=== PATIENT | male | born 1980 | race Caucasian/White ===

== ENCOUNTER 2017-03-03 18:34 | Emergency (ER) | payer OTHER ==
[2017-03-03 18:48] VITALS: BP 141/84; PULSE 98; RESP 16; TEMP 99
[2017-03-03] MEDS ORDERED: GELATIN SPONGE,ABSORB (SMALL) 1 EACH SPONGE TOPICAL STA (19:34)
--- NOTE | 2017-03-03 19:36 | ED ---
Wound/Laceration HPI - General Chief Complaint: Wound/Laceration Stated Complaint: rt index finger laceration Time Seen by Provider: 03/03/17 19:30 Source: patient, RN notes reviewed, old records reviewed Mode of arrival: ambulatory Limitations: no limitations - History of Present Illness Initial Comments: This is a 36 year old male with CC of right index finger laceratoin. Patient reports he d was putting garbage into trash can when he cut his hand on an unknown object. Patient reports that he is not on blood thinners, but the laceration continued to bleed despite bandages. Patient reports full range of motion of finger, denies peripheral paresthesias. Patient states that tetanus is up to date. - Related Data Allergies Allergy/AdvReac Type Severity Reaction Status Date / Time No Known Allergies Allergy Verified 03/03/17 18:48 Review of Systems ROS Statement: Those systems with pertinent positive or pertinent negative responses have been documented in the HPI. ROS Other: All systems not noted in ROS Statement are negative. Past Medical History Past Medical History: Osteoarthritis (OA) History of Any Multi-Drug Resistant Organisms: None Reported Past Surgical History: Appendectomy, Tonsillectomy Past Psychological History: No Psychological Hx Reported Smoking Status: Current every day smoker Past Alcohol Use History: Occasional Past Drug Use History: None Reported General Exam - General Exam Comments Initial Comments: Well appearing 36 year old male, no distress. Limitations: no limitations General appearance: alert, in no apparent distress Head exam: Present: atraumatic, normocephalic, normal inspection Eye exam: Present: normal appearance, PERRL, EOMI. Absent: scleral icterus, conjunctival injection, periorbital swelling ENT exam: Present: normal exam, mucous membranes moist Neck exam: Present: normal inspection. Absent: tenderness, meningismus, lymphadenopathy Respiratory exam: Present: normal lung sounds bilaterally. Absent: respiratory distress, wheezes, rales, rhonchi, stridor Cardiovascular Exam: Present: regular rate, normal rhythm, normal heart sounds. Absent: systolic murmur, diastolic murmur, rubs, gallop, clicks Extremities exam: Present: normal inspection, full ROM, normal capillary refill. Absent: tenderness, pedal edema, joint swelling, calf tenderness Right Hand Wrist exam: Present: full ROM, laceration Hand L/R Front: 1 - laceration (2cm laceration,abrasion. laceratoin is shaved off skin, no skin to suture together.) Neuro motor exam: Present: wrist extension intact, thumb opposition intact, thumb IP flexion intact, thumb adduction intact, fingers 2-5 abduction intact Neurosensory exam: Present: 2-point discrimination, radial nerve intact, ulnar nerve intact, median nerve intact Vascular: Present: normal capillary refill Back exam: Present: normal inspection Neurological exam: Present: alert, oriented X3, CN II-XII intact Psychiatric exam: Present: normal affect, normal mood Skin exam: Present: warm, dry, intact, normal color. Absent: rash Course Vital Signs 03/03/17 18:45 Temperature 99.0 F Pulse Rate 98 Respiratory 16 Rate Blood Pressure 141/84 O2 Sat by Pulse 100 Oximetry Medical Decision Making - Medical Decision Making 36 year old male with CC of right index finger laceration after putting hand in garbage can and was cut on unknown object. Patient has a shaved like laceraiton , no skin to suture together. Laceration is superficial, and there is some bleeding. Patient wound was irrigated. A piece of gelfoam applied and pressure dressing applied. Patient advised to allow gelfoam to come off when ready. Discussed follow up with PCP or return if any signs of infection occur. REturn paramteres discussed. PAtient states that he already had tetanus recently. Disposition Clinical Impression: Finger laceration Disposition: HOME SELF-CARE Condition: Good Instructions: Finger Laceration (ED) Additional Instructions: Patient advised to allow the Gelfoam to come off within the next 2-3 days. Keep the wound covered until then. Return to emergency department if any alarming signs or symptoms occur. Referrals: Ra Austin Jr, DO [Primary Care Provider] - 1-2 days Time of Disposition: 19:35
--- NOTE | 2017-03-06 04:01 | CDI ---
Dear Jessy Anderson PA-C: Please do addendum History of Present Illness, Physical Examination, and Procedure of finger laceration. Thank You, Van Mark, [employer]. If you have any questions, please contact Student Services Advisor at [phone]. [facility]
== END 2017-03-03 19:54 | disposition home or self-care (01) ==
LOC: EC 18:34
DX: S61.210A Laceration without foreign body of right index finger without damage to nail, initial encounter (principal); F17.200 Nicotine dependence, unspecified, uncomplicated; W45.8XXA Other foreign body or object entering through skin, initial encounter; Y93.89 Activity, other specified
CPT/HCPCS: 99283

== ENCOUNTER 2020-02-02 11:53 | Emergency (ER) | payer OTHER ==
[2020-02-02 12:01] VITALS: BP 150/94; PULSE 103; RESP 18; TEMP 98.1
[2020-02-02] MEDS ORDERED: IBUPROFEN 600 MG TAB PO STA (12:06)
--- NOTE | 2020-02-02 12:20 | XR ---
EXAMINATION TYPE: XR hand complete LT DATE OF EXAM: 02/02/2020 CLINICAL HISTORY: pain TECHNIQUE: Frontal, lateral and oblique images of the left hand are obtained. COMPARISON: None. FINDINGS: There is no acute fracture/dislocation evident. The joint spaces appear within normal limi ts. The overlying soft tissue appears unremarkable. IMPRESSION: There is no acute fracture or dislocation. ICD 10 NO FRACTURE, INITIAL EVALUATION
--- NOTE | 2020-02-02 12:21 | ED ---
General Adult HPI - General Chief complaint: Extremity Injury, Upper Stated complaint: Lt hand injury Time Seen by Provider: 02/02/20 12:03 Source: patient, RN notes reviewed, old records reviewed Mode of arrival: ambulatory Limitations: no limitations - History of Present Illness Initial comments: 39-year-old male presenting with left thumb injury. Patient struck his left thumb just at the base with a hammer. He had significant pain and swelling. He presented emergency department for evaluation. No other injury. Patient is otherwise healthy. - Related Data Previous Rx's Medication Instructions Recorded Ibuprofen [Motrin] 600 mg PO Q8HR PRN #24 tab 02/02/20 Allergies Allergy/AdvReac Type Severity Reaction Status Date / Time No Known Allergies Allergy Verified 02/02/20 12:01 Review of Systems ROS Statement: Those systems with pertinent positive or pertinent negative responses have been documented in the HPI. ROS Other: All systems not noted in ROS Statement are negative. Past Medical History Past Medical History: Osteoarthritis (OA) History of Any Multi-Drug Resistant Organisms: None Reported Past Surgical History: Appendectomy, Tonsillectomy Past Psychological History: No Psychological Hx Reported Smoking Status: Former smoker Past Alcohol Use History: Occasional Past Drug Use History: None Reported General Exam Limitations: no limitations General appearance: alert, in no apparent distress Head exam: Present: atraumatic, normocephalic Eye exam: Present: normal appearance, PERRL ENT exam: Present: normal exam Neck exam: Present: normal inspection. Absent: tenderness, meningismus Respiratory exam: Present: normal lung sounds bilaterally. Absent: respiratory distress, wheezes Cardiovascular Exam: Present: regular rate, normal rhythm GI/Abdominal exam: Present: soft. Absent: distended, tenderness, guarding Extremities exam: Present: normal capillary refill, joint swelling (Swelling at the base of the thumb, mild ecchymosis on the thenar eminence. Range of motion is limited secondary to pain, normal cap refill, no laceration or abrasion.). Absent: pedal edema Back exam: Present: normal inspection Course Vital Signs 02/02/20 11:58 Temperature 98.1 F Pulse Rate 103 H Respiratory 18 Rate Blood Pressure 150/94 O2 Sat by Pulse 100 Oximetry Medical Decision Making - Medical Decision Making 39-year-old male presenting with left thumb injury. X-rays performed of the left thumb and left hand. This is negative for fracture dislocation. This is soft tissue injury, patient will elevate and ice his left hand. He will take Motrin for pain. Disposition Clinical Impression: Contusion of thumb, left Disposition: HOME SELF-CARE Condition: Good Instructions (If sedation given, give patient instructions): Contusion in Adults (ED), Finger Sprain (ED) Prescriptions: Ibuprofen [Motrin] 600 mg PO Q8HR PRN #24 tab PRN Reason: Pain Is patient prescribed a controlled substance at d/c from ED?: No Referrals: Ra Austin Jr, [Primary Care Provider] - 1-2 days Time of Disposition: 12:20
== END 2020-02-02 12:33 | disposition home or self-care (01) ==
LOC: EC 11:53
DX: S60.012A Contusion of left thumb without damage to nail, initial encounter (principal); Z87.891 Personal history of nicotine dependence; W22.8XXA Striking against or struck by other objects, initial encounter; Y93.89 Activity, other specified; Y92.009 Unspecified place in unspecified non-institutional (private) residence as the place of occurrence of the external cause
CPT/HCPCS: 99284

== ENCOUNTER 2023-09-26 18:57 | Emergency (ER) | payer BC, OTHER ==
--- NOTE | 2023-09-26 19:34 | ED ---
Recheck HPI - General Chief Complaint: Recheck/Abnormal Lab/Rx Stated Complaint: High blood pressure Time Seen by Provider: 09/26/23 19:21 Source: patient Mode of arrival: ambulatory Limitations: no limitations - History of Present Illness Initial Comments: 43-year-old male presenting with concern for elevated blood pressure. Patient has been having intermittent blurry vision since yesterday, today he checked his blood pressure and noted that it was 142/102. States that he also has a minor frontal headache. No chest pain or difficulty breathing. No abdominal pain, nausea, vomiting. No neck pain, fever, eye pain, difficulty with extraocular movements, or neck pain. No history of hypertension. Patient currently only takes Zoloft. Follows with Dr. Austin and receives annual physical. - Related Data Previous Rx's Medication Instructions Recorded Ibuprofen [Motrin] 600 mg PO Q8HR PRN #24 tab 02/02/20 Allergies Allergy/AdvReac Type Severity Reaction Status Date / Time No Known Allergies Allergy Verified 09/26/23 19:20 Review of Systems ROS Statement: Those systems with pertinent positive or pertinent negative responses have been documented in the HPI. ROS Other: All systems not noted in ROS Statement are negative. Past Medical History Past Medical History: Osteoarthritis (OA) History of Any Multi-Drug Resistant Organisms: None Reported Past Surgical History: Appendectomy, Tonsillectomy Past Psychological History: Anxiety Smoking Status: Current every day smoker Past Alcohol Use History: Occasional Past Drug Use History: None Reported General Exam Limitations: no limitations General appearance: alert, in no apparent distress Head exam: Present: atraumatic, normocephalic Eye exam: Present: normal appearance, PERRL, EOMI. Absent: periorbital swelling Pupils: Present: normal accommodation Neck exam: Present: normal inspection. Absent: meningismus Respiratory exam: Present: normal lung sounds bilaterally. Absent: respiratory distress, wheezes, rales, rhonchi, stridor Cardiovascular Exam: Present: regular rate, normal rhythm, normal heart sounds. Absent: systolic murmur, diastolic murmur, rubs, gallop, clicks Neurological exam: Present: alert, oriented X3 Psychiatric exam: Present: normal affect, normal mood Skin exam: Present: warm, dry Course Vital Signs 09/26/23 09/26/23 09/26/23 19:17 19:20 19:45 Temperature 98.1 F Pulse Rate 108 H 98 92 Respiratory 20 18 18 Rate Blood Pressure 155/96 152/98 146/104 O2 Sat by Pulse 98 Oximetry 09/26/23 09/26/23 20:20 20:57 Temperature 97.2 F L Pulse Rate 76 73 Respiratory 18 18 Rate Blood Pressure 159/107 151/108 O2 Sat by Pulse 98 Oximetry Medical Decision Making - Medical Decision Making Was pt. sent in by a medical professional or institution (, PA, GEOPHYSICIST, urgent care, hospital, or [facility]...) When possible be specific @ -No Did you speak to anyone other than the patient for history (EMS, parent, family, police, friend...)? What history was obtained from this source @ -No Did you review nursing and triage notes (agree or disagree)? Why? @ -I reviewed and agree with nursing and triage notes Were old charts reviewed (outside hosp., previous admission, EMS record, old EKG, old radiological studies, urgent care reports/EKG's, [facility] records)? Report findings @ -No old charts were reviewed Differential Diagnosis (chest pain, altered mental status, abdominal pain women, abdominal pain men, vaginal bleeding, weakness, fever, dyspnea, syncope, h eadache, dizziness, GI bleed, back pain, seizure, CVA, palpatations, mental health, musculoskeletal)? @ -MDM Differential Headache: Migraine, tension, cluster, carbon monoxide, central venous thrombosis, pension karma temporal arteritis, acute closure glaucoma, intercranial hemorrhage, mastoiditis, sinusitis, head injury this is not meant to be an all-inclusive list. EKG interpreted by me (3pts min.). @ -As above X-rays interpreted by me (1pt min.). @ -None done CT interpreted by me (1pt min.). @ -None done U/S interpreted by me (1pt. min.). @ -None done What testing was considered but not performed or refused? (CT, X-rays, U/S, labs)? Why? @ -None What meds were considered but not given or refused? Why? @ -None Did you discuss the management of the patient with other professionals (professionals i.e. , MELBA, GEOPHYSICIST, lab, RT, psych nurse, social science research assistant, pigeon fancier, teacher, compliance review officer, case folder)? Give summary @ -No Was smoking cessation discussed for >3mins.? @ -No Was critical care preformed (if so, how long)? @ -No Were there social determinants of health that impacted care today? How? (Homelessness, low income, unemployed, alcoholism, drug addiction, transportati on, low edu. Level, literacy, decrease access to med. care, prison, rehab)? @ -No Was there de-escalation of care discussed even if they declined (Discuss DNR or withdrawal of care, Hospice)? DNR status @ -No What co-morbidities impacted this encounter? (DM, HTN, Smoking, COPD, CAD, Cancer, CVA, ARF, Chemo, Hep., AIDS, mental health diagnosis, sleep apnea, morbid obesity)? @ -None Was patient admitted / discharged? Hospital course, mention meds given and route, prescriptions, significant lab abnormalities, going to OR and other pertinent info. @ -43-year-old male presenting with chief complaint of elevated blood pressure. He states that at home he was having some intermittent vision blurriness and a mild frontal headache. This prompted him to check his blood pressure and he noted it was 142/102. Patient otherwise feels fine. History and physical exam are conducted. No focal neurological deficits. CBC CMP and troponin require no action. EKG shows sinus rhythm with no acute changes. On reassessment the patient is resting comfortably showing no signs of distress. He is educated on today's findings. Instructed to follow-up with his PCP and educated on recording a blood pressure diary. Discharged home. Follow-up with PCP. Report back to ER with any new or worsening symptoms. Discussed return parameters and answered all questions. Patient conveyed verbal understanding and agreed to the plan. I discussed this case in detail with my attending Dr. Galindo Undiagnosed new problem with uncertain prognosis? @ -No Drug Therapy requiring intensive monitoring for toxicity (Heparin, Nitro, Insulin, Cardizem)? @ -No Were any procedures done? @ -No Diagnosis/symptom? @ -Hypertension Acute, or Chronic, or Acute on Chronic? @ -Acute Uncomplicated (without systemic symptoms) or Complicated (systemic symptoms)? @ -Uncomplicated Side effects of treatment? @ -No Exacerbation, Progression, or Severe Exacerbation? @ -No Poses a threat to life or bodily function? How? (Chest pain, [place], [place], pneumonia, PE, COPD, DKA, ARF, appy, cholecystitis, CVA, Diverticulitis, Homicidal, Suicidal, threat to staff... and all critical care pts) @ -Low likelihood at this time - Lab Data Result diagrams: 09/26/23 19:37 09/26/23 19:37 Lab Results 09/26/23 09/26/23 09/26/23 Range/Units 19:37 19:37 19:37 WBC 12.0 H (3.8-10.6) k/uL RBC 5.09 (4.30-5.90) m/uL Hgb 15.6 (13.0-17.5) gm/dL Hct 47.4 (39.0-53.0) % MCV 93.2 (80.0-100.0) fL MCH 30.6 (25.0-35.0) pg MCHC 32.8 (31.0-37.0) g/dL RDW 12.5 (11.5-15.5) % Plt Count 248 (150-450) k/uL MPV 8.4 Neutrophils % 63 % Lymphocytes % 28 % Monocytes % 4 % Eosinophils % 3 % Basophils % 1 % Neutrophils # 7.6 (1.3-7.7) k/uL Lymphocytes # 3.4 (1.0-4.8) k/uL Monocytes # 0.5 (0-1.0) k/uL Eosinophils # 0.4 (0-0.7) k/uL Basophils # 0.1 (0-0.2) k/uL Sodium 138 (137-145) mmol/L Potassium 3.5 (3.5-5.1) mmol/L Chloride 105 (98-107) mmol/L Carbon Dioxide 24 (22-30) mmol/L Anion Gap 9 mmol/L BUN 16 (9-20) mg/dL Creatinine 0.83 (0.66-1.25) mg/dL Est GFR (CKD-EPI)AfAm >90 (>60 ml/min/1.73 sqM) Est GFR (CKD-EPI)NonAf >90 (>60 ml/min/1.73 sqM) Glucose 109 H (74-99) mg/dL Calcium 9.7 (8.4-10.2) mg/dL Total Bilirubin 0.7 (0.2-1.3) mg/dL AST 24 (17-59) U/L ALT 37 (4-49) U/L Alkaline Phosphatase 74 (38-126) U/L Troponin I <0.012 (0.000-0.034) ng/mL Total Protein 8.1 (6.3-8.2) g/dL Albumin 4.6 (3.5-5.0) g/dL Disposition Clinical Impression: Hypertension Disposition: HOME SELF-CARE Condition: Good Instructions (If sedation given, give patient instructions): Hypertension (ED) Additional Instructions: Follow-up with PCP. Report back to ER with any new or worsening symptoms. Keep a diary of blood pressures, measure your blood pressure at the same times each day. Is patient prescribed a controlled substance at d/c from ED?: No Referrals: Ra Austin Jr, [Primary Care Provider] - 1-2 days Time of Disposition: 20:38
[2023-09-26 19:55] LABS: Basophils # (A) 0.1 k/uL (0-0.2); Basophils % (A) 1 %; Eosinophils # (A) 0.4 k/uL (0-0.7); Eosinophils % (A) 3 %; HCT 47.4 % (39.0-53.0); HGB 15.6 gm/dL (13.0-17.5); Lymphocytes # (A) 3.4 k/uL (1.0-4.8); Lymphocytes % (A) 28 %; MCH 30.6 pg (25.0-35.0); MCHC 32.8 g/dL (31.0-37.0); MCV 93.2 fL (80.0-100.0); Mean Platelet Volume 8.4; Monocytes # (A) 0.5 k/uL (0-1.0); Monocytes % (A) 4 %; Neutrophils # (A) 7.6 k/uL (1.3-7.7); Neutrophils % (A) 63 %; Platelet Count 248 k/uL (150-450); RBC 5.09 m/uL (4.30-5.90); RDW 12.5 % (11.5-15.5)
[2023-09-26 19:58] VITALS: RESP 18
[2023-09-26 20:09] LABS: ALT 37 U/L (4-49); AST 24 U/L (17-59); African American GFR (CKD) >90 (>60 ml/min/1.73 sqM); Albumin 4.6 g/dL (3.5-5.0); Alkaline Phosphatase 74 U/L (38-126); Anion Gap 9 mmol/L; Blood Urea Nitrogen 16 mg/dL (9-20); Calcium 9.7 mg/dL (8.4-10.2); Carbon Dioxide 24 mmol/L (22-30); Chloride 105 mmol/L (98-107); Glucose 109 mg/dL (74-99); Non-African American GFR(CKD) >90 (>60 ml/min/1.73 sqM); Potassium 3.5 mmol/L (3.5-5.1); Sodium 138 mmol/L (137-145); Total Bilirubin 0.7 mg/dL (0.2-1.3); Total Protein 8.1 g/dL (6.3-8.2)
[2023-09-26] MEDS: ACETAMINOPHEN TAB 325 MG TAB PO STA ×2 (20:53→21:12)
[2023-09-26 21:37] VITALS: BP 151/108; PULSE 73; TEMP 97.2
== END 2023-09-26 21:13 | disposition home or self-care (01) ==
LOC: EC 18:57
DX: I10 Essential (primary) hypertension (principal); F17.200 Nicotine dependence, unspecified, uncomplicated
CPT/HCPCS: 36415; 80053; 84484; 85025; 93005; 99284

== ENCOUNTER 2024-07-12 14:28 | Emergency (ER) | payer BC ==
--- NOTE | 2024-07-12 15:09 | ED ---
Trauma HPI - General Chief Complaint: Extremity Injury, Upper Stated Complaint: R hand injury from table saw Time Seen by Provider: 07/12/24 14:38 Source: patient, family, RN notes reviewed Mode of arrival: ambulatory Limitations: no limitations - History of Present Illness Initial Comments: This is a 43-year-old male presenting with for right hand injury x 30 minutes prior to ER arrival. Patient states he accidentally cut/injured his right hand with a table saw, causing loss of the end of his right thumb and deeply cutting his second and third digits. 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 Denies other injuries. Hand wrapped by triage nurse. States tetanus vaccina tion is not up-to-date. MD Complaint: injury Onset/Timin -: minutes(s) Loss of Consciousness: no Location - Extremities: Right: Hand Severity scale (1-10): 10 Consistency: constant Context: Machine or Tool Related Injury Associated Symptoms: denies other symptoms Treatments Prior to Arrival: cold therapy (Amputated digit washed and placed ice, by plastic) - Related Data Previous Rx's Medication Instructions Recorded Ibuprofen [Motrin] 600 mg PO Q8HR PRN #24 tab 02/02/20 Cephalexin [Keflex] 500 mg PO Q6HR 14 Days #56 cap 07/12/24 Ibuprofen [Motrin] 800 mg PO Q8H PRN #30 tab 07/12/24 Allergies Allergy/AdvReac Type Severity Reaction Status Date / Time No Known Allergies Allergy Verified 09/26/23 19:20 Review of Systems ROS Statement: Those systems with pertinent positive or pertinent negative responses have been documented in the HPI. ROS Other: All systems not noted in ROS Statement are negative. Past Medical History Past Medical History: Hypertension, Osteoarthritis (OA) History of Any Multi-Drug Resistant Organisms: None Reported Past Surgical History: Adenoidectomy, Appendectomy, Tonsillectomy Past Psychological History: Anxiety Smoking Status: Current every day smoker Past Alcohol Use History: Occasional Past Drug Use History: None Reported General Exam Limitations: no limitations General appearance: alert, in no apparent distress Head exam: Present: atraumatic, normocephalic, normal inspection Eye exam: Present: normal appearance, PERRL, EOMI. Absent: scleral icterus, conjunctival injection, periorbital swelling ENT exam: Present: normal exam, mucous membranes moist Neck exam: Present: normal inspection. Absent: tenderness, meningismus, lymphadenopathy Respiratory exam: Present: normal lung sounds bilaterally. Absent: respiratory distress, wheezes, rales, rhonchi, stridor Cardiovascular Exam: Present: regular rate, normal rhythm, normal heart sounds. Absent: systolic murmur, diastolic murmur, rubs, gallop, clicks GI/Abdominal exam: Present: soft, normal bowel sounds. Absent: distended, tenderness, guarding, rebound, rigid Extremities exam: Present: full ROM, normal capillary refill, other (Amputation of right thumb distal to DIP joint with minimal bleeding. Deep longitudinal lacerations along the frontal plane along the length of second and third digits with minimal bleeding). Absent: tenderness, pedal edema, joint swelling, calf tenderness Back exam: Present: normal inspection Neurological exam: Present: alert, oriented X3, CN II-XII intact Psychiatric exam: Present: normal affect, normal mood Skin exam: Present: warm, dry, intact, normal color. Absent: rash Course Vital Signs 07/12/24 14:41 Temperature 98 F Pulse Rate 100 Respiratory 20 Rate Blood Pressure 117/56 O2 Sat by Pulse 99 Oximetry Medical Decision Making - Medical Decision Making Was pt. sent in by a medical professional or institution (, PA, INTERACTIVE WEB DEVELOPER, urgent care, hospital, or usp...) When possible be specific @ -No Did you speak to anyone other than the patient for history (EMS, parent, family, police, friend...)? What history was obtained from this source @ -Patient's provided part of HPI Did you review nursing and triage notes (agree or disagree)? Why? @ -I reviewed and agree with nursing and triage notes Were old charts reviewed (outside hosp., previous admission, EMS record, old EKG, old radiological studies, urgent care reports/EKG's, usp records)? Report findings @ -No old charts were reviewed Differential Diagnosis (chest pain, altered mental status, abdominal pain women, abdominal pain men, vaginal bleeding, weakness, fever, dyspnea, syncope, headache, dizziness, GI bleed, back pain, seizure, CVA, palpatations, mental health, musculoskeletal)? @ -Complete amputation, deep, complex laceration, cellulitis, fracture, ligament damage, tetanus EKG interpreted by me (3pts min.). @ -Not done X-rays interpreted by me (1pt min.). @ -Right hand x-ray shows first digit fracture/amputation of distal phalanx. Third digit DIP joint abnormal, possible flexor tendon injury. Second digit has 2 mm radiopaque foreign body in distal volar aspect. CT interpreted by me (1pt min.). @ -None done U/S interpreted by me (1pt. min.). @ -None done What testing was considered but not performed or refused? (CT, X-rays, U/S, labs)? Why? @ -None What meds were considered but not given or refused? Why? @ -None Did you discuss the management of the patient with other professionals (professionals i.e. DrShoaib, PA, INTERACTIVE WEB DEVELOPER, lab, RT, psych nurse, geriatric social work professor, admiralty lawyer, teacher, hotel security officer, casework manager)? Give summary @ -Spoke to Dr. Clifford from orthopedics who advised clean wounds, closed second and third digit lacerations as best as possible and provide IV and p.o. antibiotics with outpatient follow-up. Advised contact surgical hand specialist at other hospitals if reattachment is preferred by patient. Contacted [facility] spoke to RN Jessy, who conveyed patient's case to Dr. Ramirez, who contacted hand surgeons, who agreed to ER to ER transfer the patient for ongoing care. Was smoking cessation discussed for >3mins.? @ -No Was critical care preformed (if so, how long)? @ -No Were there social determinants of health that impacted care today? How? (Homelessness, low income, unemployed, alcoholism, drug addiction, transportation, low edu. Level, literacy, decrease access to med. care, group home, rehab)? @ -No Was there de-escalation of care discussed even if they declined (Discuss DNR or withdrawal of care, Hospice)? DNR status @ -No What co-morbidities impacted this encounter? (DM, HTN, Smoking, COPD, CAD, Cancer, CVA, ARF, Chemo, Hep., AIDS, mental health diagnosis, sleep apnea, morbid obesity)? @ -None Was patient admitted / discharged? Hospital course, mention meds given and route, prescriptions, significant lab abnormalities, going to OR and other pertinent info. @ -Lab work shows mild leukocytosis (12.6) and hyperglycemia (194). Otherwise unremarkable. Right hand x-ray shows first digit fracture/amputation of distal phalanx. Third digit DIP joint abnormal, possible flexor tendon injury. Second digit has 2 mm radiopaque foreign body in distal volar aspect. Patient i nitially given normal saline, Dilaudid and Toradol for pain. Provided tetanus vaccination and started on IV Rocephin. Additional Toradol, Dilaudid and morphine provided for ongoing pain control. Spoke to Dr. Clifford from orthopedics who advised clean wounds, closed second and third digit lacerations as best as possible and provide IV and p.o. antibiotics with outpatient follow-up. Advised contact surgical hand specialist at other hospitals if reattachment is preferred by patient. Contacted [facility] spoke to RN Jessy, who conveyed patient's case to Dr. Ramirez, who contacted hand surgeons, who agreed to ER to ER transfer the patient for ongoing care. Discussed patient with Dr. Mclain. Undiagnosed new problem with uncertain prognosis? @ -Amputation Drug Therapy requiring intensive monitoring for toxicity (Heparin, Nitro, Insulin, Cardizem)? @ -No Were any procedures done? @ -No Diagnosis/symptom? @ -Amputation of thumb, severe damage/lacerations to fingers by tablesaw Acute, or Chronic, or Acute on Chronic? @ -Acute Uncomplicated (without systemic symptoms) or Complicated (systemic symptoms)? @ -Complicated Side effects of treatment? @ -No Exacerbation, Progression, or Severe Exacerbation? @ -No Poses a threat to life or bodily function? How? (Chest pain, [place], [place], pneumonia, PE, COPD, DKA, ARF, appy, cholecystitis, CVA, Diverticulitis, Homicidal, Suicidal, threat to staff... and all critical care pts) @ -Yes, amputation of digit, severe damage to fingers - Lab Data Result diagrams: 07/12/24 15:26 07/12/24 15:26 Lab Results 07/12/24 07/12/24 07/12/24 Range/Units 15:26 15: 15: WBC 12.6 H (3.8-10.6) k/uL RBC 4.90 (4.30-5.90) m/uL Hgb 15.0 (13.0-17.5) gm/dL Hct 44.9 (39.0-53.0) % MCV 91.7 (80.0-100.0) fL MCH 30.6 (25.0-35.0) pg MCHC 33.4 (31.0-37.0) g/dL RDW 12.6 (11.5-15.5) % Plt Count 241 (150-450) k/uL MPV 7.7 Neutrophils % 74 % Lymphocytes % 19 % Monocytes % 3 % Eosinophils % 3 % Basophils % 0 % Neutrophils # 9.2 H (1.3-7.7) k/uL Lymphocytes # 2.4 (1.0-4.8) k/uL Monocytes # 0.4 (0-1.0) k/uL Eosinophils # 0.4 (0-0.7) k/uL Basophils # 0.1 (0-0.2) k/uL PT 10.3 (10.0-12.5) sec INR 0.9 (<1.2) APTT 23.3 (22.0-30.0) sec Sodium 137 (137-145) mmol/L Potassium 4.5 (3.5-5.1) mmol/L Chloride 106 (98-107) mmol/L Carbon Dioxide 20 L (22-30) mmol/L Anion Gap 11 mmol/L BUN 19 (9-20) mg/dL Creatinine 0.95 (0.66-1.25) mg/dL Est GFR (CKD-EPI)AfAm >90 (>60 ml/min/1.73 sqM) Est GFR (CKD-EPI)NonAf >90 (>60 ml/min/1.73 sqM) Glucose 194 H (74-99) mg/dL Calcium 9.6 (8.4-10.2) mg/dL Total Bilirubin 0.7 (0.2-1.3) mg/dL AST 29 (17-59) U/L ALT 41 (4-49) U/L Alkaline Phosphatase 59 (38-126) U/L Total Protein 7.2 (6.3-8.2) g/dL Albumin 4.2 (3.5-5.0) g/dL Disposition Clinical Impression: Amputation of thumb, right, Accident caused by other powered hand tools, Laceration of finger, right, complicated Disposition: OTHER INSTITUTION NOT DEFINED Condition: Stable Prescriptions: Cephalexin [Keflex] 500 mg PO Q6HR 14 Days #56 cap Ibuprofen [Motrin] 800 mg PO Q8H PRN #30 tab PRN Reason: Pain Is patient prescribed a controlled substance at d/c from ED?: No Referrals: Ra Austin Jr, DO [Primary Care Provider] - 1-2 days Aniceto Clifford MD [STAFF PHYSICIAN] - 1-2 days Sean Echevarria MD [STAFF PHYSICIAN] - 1-2 days Time of Disposition: 17:41 - Out of Hospital Transfer - Req. Specs Out of Hospital Transfer - Requested Specifics: Other Emergency Center ([facility])
[2024-07-12] MEDS: HYDROmorphone 1 MG/ML 1 ML SYRINGE IVP STA ×2 (15:29→16:47)
[2024-07-12] MEDS: KETOROLAC 15 MG/ML 1 ML VIAL IVP STA ×2 (15:29→16:47)
--- NOTE | 2024-07-12 15:29 | XR ---
EXAMINATION TYPE: XR hand complete RT DATE OF EXAM: 07/12/2024 3:10 PM COMPARISON: None CLINICAL INDICATION: Male, 43 years old with history of Thumb amputation, longitudinal lacs to 2 3; PHH, pain TECHNIQUE: XR hand complete RT 3 views were obtained. FINDINGS/IMPRESSION: 1. Soft tissue injury with comminuted fracture of the distal phalanx of the first digit. 2. Third digit distal interphalangeal joint abnormal appearance correlate with physical exam possibl e fracture present. 3. Second digit radiopaque foreign body in the volar soft tissues distally measuring up to 2 mm. [facility], , 07/12/2024 3:26 PM
[2024-07-12] MEDS: SODIUM CHLORIDE 0.9% 1,000 ML IV STA (15:32)
[2024-07-12 15:33] LABS: Basophils # (A) 0.1 k/uL (0-0.2); Basophils % (A) 0 %; Eosinophils # (A) 0.4 k/uL (0-0.7); Eosinophils % (A) 3 %; HCT 44.9 % (39.0-53.0); Lymphocytes # (A) 2.4 k/uL (1.0-4.8); Lymphocytes % (A) 19 %; MCH 30.6 pg (25.0-35.0); MCHC 33.4 g/dL (31.0-37.0); MCV 91.7 fL (80.0-100.0); Mean Platelet Volume 7.7; Monocytes # (A) 0.4 k/uL (0-1.0); Monocytes % (A) 3 %; Neutrophils # (A) 9.2 k/uL (1.3-7.7); Neutrophils % (A) 74 %; Platelet Count 241 k/uL (150-450); RDW 12.6 % (11.5-15.5); WBC 12.6 k/uL (3.8-10.6)
[2024-07-12 15:44] LABS: ALT 41 U/L (4-49); AST 29 U/L (17-59); African American GFR (CKD) >90 (>60 ml/min/1.73 sqM); Albumin 4.2 g/dL (3.5-5.0); Alkaline Phosphatase 59 U/L (38-126); Anion Gap 11 mmol/L; Blood Urea Nitrogen 19 mg/dL (9-20); Calcium 9.6 mg/dL (8.4-10.2); Carbon Dioxide 20 mmol/L (22-30); Chloride 106 mmol/L (98-107); Glucose 194 mg/dL (74-99); INR 0.9 (<1.2); Non-African American GFR(CKD) >90 (>60 ml/min/1.73 sqM); Partial Thromboplastin Time 23.3 sec (22.0-30.0); Potassium 4.5 mmol/L (3.5-5.1); Prothrombin Time 10.3 sec (10.0-12.5); Sodium 137 mmol/L (137-145); Total Bilirubin 0.7 mg/dL (0.2-1.3); Total Protein 7.2 g/dL (6.3-8.2)
[2024-07-12] MEDS: DIPH,PERTUS(ACELL)TETVAC-LF 0.5 ML VIAL IM ONE (17:41)
[2024-07-12] MEDS: MORPHINE SULFATE 2 MG/ML SYRINGE IVP ONE (19:01)
[2024-07-12 19:35] VITALS: BP 150/84; PULSE 94; RESP 20; TEMP 98.4
== END 2024-07-12 20:06 | disposition other institution (70) ==
LOC: EC 14:28
DX: S61.212A Laceration without foreign body of right middle finger without damage to nail, initial encounter (principal); S61.220A Laceration with foreign body of right index finger without damage to nail, initial encounter; Z89.011 Acquired absence of right thumb; F17.200 Nicotine dependence, unspecified, uncomplicated; Z23 Encounter for immunization; W27.0XXA Contact with workbench tool, initial encounter; Y99.0 Civilian activity done for income or pay
CPT/HCPCS: 36415; 80053; 85025; 85610; 85730; 73130; 90715; 99285; 96365; 96375 ×3; 96376 ×2; 96361; 90471; J0696; J2270; J1171; J1885

== ENCOUNTER → 2024-07-17 | Outpatient (CLI) | payer BC ==
--- NOTE | 2024-07-17 16:34 | XR ---
EXAMINATION TYPE: XR pelvis AP view DATE OF EXAM: 07/17/2024 4:17 PM COMPARISON: None CLINICAL INDICATION: Male, 43 years old with history of LOW BACK PAIN PAIN IN R HIP M54.50 M25.551; pain H TECHNIQUE: XR pelvis AP view, examined in a single projection. FINDINGS: There is no evidence of fracture or dislocation. There is no soft tissue abnormality. No a bnormal calcifications are present. The spine appears intact. The hips appear intact. No significant degeneration. IMPRESSION: No acute osseous pathology. [facility], , 07/17/2024 4:32 PM
--- NOTE | 2024-07-17 16:44 | XR ---
EXAMINATION TYPE: XR lumbar spine 2 or 3V DATE OF EXAM: 07/17/2024 4:17 PM COMPARISON: None CLINICAL INDICATION: Male, 43 years old with history of M54.50 LOW BACK PAIN M25.551 PAIN IN RIGHT HI P; PHH, pain TECHNIQUE: XR lumbar spine 2 or 3V - Frontal, lateral and coned in L5-S1 lateral views of the spine. FINDINGS: No evidence of any acute osseous pathology. No evidence of loss of vertebral body height i s seen. There is normal alignment of the lumbar vertebral bodies. Scattered disc space narrowing. Mul tilevel marginal osteophyte formation throughout the visualized spine. There is facet joint arthropat hy throughout the spine. Scattered at least mild neural foraminal stenosis. Endplate sclerosis at L2- L3 adjoining endplates. IMPRESSION: 1. No acute fracture. 2. Mild multilevel disc degeneration. [facility], , 07/17/2024 4:42 PM
--- NOTE | 2024-07-17 16:52 | XR ---
EXAMINATION TYPE: XR Hip Complete RT DATE OF EXAM: 07/17/2024 4:17 PM COMPARISON: Same day radiograph CLINICAL INDICATION: Male, 43 years old with history of PAIN IN RIGHT HIP; PHH, pain TECHNIQUE: XR Hip Complete RT; Frontal and lateral views FINDINGS: No evidence for acute process, joint dislocation or significant soft tissue swelling. Osteo phyte formation of the superior acetabulum of the hip in the expected location of the labrum. IMPRESSION: 1. No evidence for acute process. 2. Mild hip osteoarthrosis. [facility], , 07/17/2024 4:50 PM
== END | disposition home or self-care (01) ==
LOC: RADXRMAIN 15:40
PROVIDERS: ATTEND Family Medicine
DX: M51.360 Other intervertebral disc degeneration, lumbar region with discogenic back pain only (principal); M47.896 Other spondylosis, lumbar region; M16.11 Unilateral primary osteoarthritis, right hip
CPT/HCPCS: 72100; 72170; 73502